=== PATIENT | male | born 1995 | race Caucasian/White ===

== ENCOUNTER 2018-09-20 20:02 | Emergency (ER) | payer SELFPAY ==
[2018-09-20 20:39] VITALS: BP 121/75
--- NOTE | 2018-09-20 21:17 | EDPHY ---
H & P Time Seen by Provider: 09/20/18 20:17 HPI/ROS: Chief complaint: Right shoulder injury status post snowboarding accident History of present illness: This is a 23-year-old male who presents to the emergency department for a recheck of a right shoulder injury that occurred from a snowboarding accident earlier today. Patient went off a jump, lost control and landed directly onto his right shoulder. Since then he has had pain in the front of his shoulder. It does hurt to move it. He also reports some right-sided chest wall discomfort. He denies trauma to the rest of the body including the head, along the spine itself, the abdomen or any other parts the extremities. No open wounds. No neurologic deficits such as headache, paresthesias, weakness or paralysis. Smoking Status: Current every day smoker Physical Exam: General Appearance: Alert, nontoxic Eyes: PERRLA. No Esquivel sign. ENT: No hemotympanum, no Esquivel sign. Respiratory: Lungs clear to auscultation bilaterally Cardiac: Regular rate and rhythm. Neurological: Alert and oriented x4. Strength and sensation intact and symmetrical. Skin: No lesions consistent with trauma. Musculoskeletal: The head is nontender, no crepitus or bony deformity. There is no tenderness to palpation along the entire spine, there is no crepitus, bony deformity or step-off. There is tenderness palpation of the anterior shoulder most pronounced at the right AC joint. Rest of the shoulder is nontender. He is able to move it. The rest of the right upper extremity other extremities are unremarkable. Chest wall is intact palpation without crepitus or subcutaneous air. Constitutional: Initial Vital Signs Temperature (C) 37.4 C 09/20/18 20:04 Heart Rate 91 09/20/18 20:04 Respiratory Rate 18 09/20/18 20:04 Blood Pressure 147/54 H 09/20/18 20:04 O2 Sat (%) 96 09/20/18 20:04 O2 Delivery Mode Room Air Allergies/Adverse Reactions: No Known Allergies Allergy (Unverified 09/20/18 20:06) Home Medications: Medication Instructions Recorded NK [No Known Home Meds] 09/20/18 MDM/Departure - MDM Imaging Results: Imaging Impressions Shoulder X-Ray 09/20/18 20:12 Impression: Negative for fracture. Chest X-Ray 09/20/18 20:38 Impression: Findings most consistent with bronchitis/airways disease are noted. Imaging: I viewed and interpreted images myself Procedures: Patient is placed in a right arm sling. He remains neurovascularly intact. ED Course/Re-evaluation: Patient seen under the supervision of my secondary supervising physician Dr. Geoff Dan. Patient presents to the emergency department for a shoulder pain after snowboarding accident. Rate of stream is neurovascularly intact. X-rays are negative. There is tenderness over the right AC joint, likely a type 1 AC joint separation. By history and physical exam no evidence of trauma to other parts of the body. Patient will be discharged home. Home care is discussed. He is asked to follow up with an orthopedic doctor for recheck. Return precautions are given. Patient voiced understanding and agreement with plan. Differential Diagnosis: Included but not limited to contusion, rotator cuff injury, AC separation, bony fracture, joint dislocation, pneumothorax - Depart Disposition: Home, Routine, Self-Care Clinical Impression: Right shoulder injury Qualifiers: Encounter type: initial encounter Qualified Code(s): S49.91XA - Unspecified injury of right shoulder and upper arm, initial encounter Condition: Good Instructions: Contusion in Adults (ED) Additional Instructions: Follow-up with orthopedics for continued evaluation and care Use ibuprofen 600 mg 3 times daily for the next 3 days Ice the injury, 20 min on, 3 times daily for the next 3 days If symptoms worsen or new symptoms develop return to the emergency room for recheck Stand Alone Forms: Work Excuse Referrals: NONE *PRIMARY CARE P,. [Primary Care Provider] - As per Instructions Jeremiah Cullen MD [Medical Doctor] - As per Instructions
== END 2018-09-20 21:27 | disposition home or self-care (01) ==
DX: S49.91XA Unspecified injury of right shoulder and upper arm, initial encounter (principal); V00.311A Fall from snowboard, initial encounter; Y93.23 Activity, snow (alpine) (downhill) skiing, snowboarding, sledding, tobogganing and snow tubing; Y92.828 Other wilderness area as the place of occurrence of the external cause; Y99.8 Other external cause status

== ENCOUNTER 2018-10-12 09:29 | Emergency (ER) | payer OTHER ==
--- NOTE | 2018-10-12 10:01 | EDPHY ---
General Time Seen by Provider: 10/12/18 09:48 Narrative: CLINICAL IMPRESSION: Scalp laceration ASSESSMENT/PLAN: Patient is a 23-year-old male with no significant medical history, takes no medications presents with complaints of a scalp laceration after slipping and falling on to a snow grooming rake. Patient is not toxic appearing, he is in no distress. Physical examination reveals 2 cm laceration on the posterior crown. There is no evidence of deep structure involvement, neurovascular compromise, foreign body, or bony involvement. The wound was not contaminated, tetanus status was already up-to-date. His neurological exam is grossly normal with no focal deficit, there was no loss of consciousness. He has no new focal neurologic deficit, there has been no altered mentation, there are no clinical findings to suggest skull fracture, there is no known bleeding disorder, there has been no vomiting and no posttraumatic seizure. Given the patients history and physical and negative per Th[place] head CT rule, we feel a head CT is not indicated at this time. The wound was irrigated and then repaired as discussed in the procedure note, the patient tolerated this well. Wound care instructions discussed with patient. The patient had no further concerns. He does not have a primary care provider, I provided a referral for him. He will also follow up with Orthopedic surgery regarding his shoulder dislocation 2 weeks prior as previously directed. He will return to the emergency department for staple removal in 7 days. Strict return precautions were discussed- he will return to the emergency department for altered mentation, lethargy, vomiting, seizure, abnormal movements, concern for infection or for any other concerning symptom. Patient verbalizes understanding and is in agreement with this plan. DIFFERENTIAL DIAGNOSIS: includes but not limited to laceration of tendon or vascular structure, underlying fracture, TBI, ICH, laceration with retained FB ED PROCEDURES: Laceration Repair Verbal consent obtained by patient. Risks discussed, including but not limited to infection, pain, retained foreign body, need for additional repair, poor cosmetic result, tendon damage, nerve damage, poor wound healing, vascular damage. Alternatives to repair discussed. Trade protocol used to establish correct patient, procedure, equipment, technical support engineer, and site. Anesthesia obtained by local infiltration. Anesthetized with 1% lidocaine with epinephrine. Laceration location posterior crown, length 2 cm, depth 4 mm, Repair type simple. Patient was prepped and draped in usual sterile fashion. Hemostasis achieved with direct pressure. Wound explored through full range of motion and entire depth of wound probed and visualized with gloved finger. No suspicion for nerve damage, tendon damage, underlying fracture, vascular damage, foreign body, or contamination. Area was cleansed with Shur-Clens and irrigated with sterile saline as per protocol. No foreign body or material removed. Repair method kelsey. Six sutures placed. Well aligned, closely approximated. wound was dressed with antibiotic ointment. Patient tolerated well with no immediate complications. Wound care: Clean and dry x 24 hours, gently clean with soap and water, cover with topical antibiotic ointment/bandage. Suture/Staple removal: 7 Days CHIEF COMPLAINT: Laceration HPI: Patient is a 23-year-old male with no significant medical history who presents to the emergency department with complaints of a scalp laceration that occurred approximately 1 hr prior to arrival. Patient works up at [employer], he accidentally slipped in the snow falling onto the ground hitting a grooming rake when he fell. Patient reports hitting the back of his head. He denies any loss of consciousness. He denies any headache, dizziness or visual changes. He is not on any anti-platelet or anticoagulation therapy. He has had no altered mentation, retrograde amnesia, vomiting or posttraumatic seizure. He denies any neck or back pain. He denies any other injury from this fall. Patient with remote right shoulder dislocation, complains of mild right shoulder pain however significantly improved from 2 weeks prior. Has not followed up with Orthopedic surgery yet. PAST MEDICAL HISTORY: Denies Pertinent Past Surgical History: Denies Social History: Current everyday smoker, occasional drinker, denies any illicit drug use. REVIEW OF SYSTEMS: All other systems negative Constitutional: No fever, no chills Musculoskeletal: No deformity. Skin: Scalp laceration Neurological: No sensory loss or weakness. PHYSICAL EXAM: General Appearance: Alert, oriented, appropriate for age, cooperative, NAD, well hydrated, non-toxic appearing, VSS, no hypoxia. HENT: Normocephalic. 2 cm laceration noted to posterior crown. No associated edema, no bony deformity or crepitus. External ears are normal, tympanic membranes with pearly peralta reflex, no evidence of hemotympanum bilaterally. No Esquivel sign or raccoon eyes. No evidence of facial trauma, no nasal bridge tenderness. Nasal mucosa is pink. Oropharynx is clear, there is no evidence of dental trauma. No malocclusion. No mandibular tenderness to palpation. Neck: Supple, no midline cervical spinal tenderness to palpation, no step-off or deformity. Full range of motion. Neurological: Alert and oriented x 3 Skin: Warm and dry. Upper Extremities: Left upper extremity is unremarkable. Intact distal pulses , Full range of motion intact, no tenderness, no ecchymosis or edema. Patient with tenderness of his generalized right shoulder, patient had shoulder dislocation 2 weeks prior. Full range of motion, no deformity or asymmetry. Distal arm nontender with full range of motion. The radial, ulnar and median nerves were all tested. Radial nerve: Patient is able to extend wrist and fingers of the local joints. Ulnar nerve: Patient is able to abduct all fingers. Median nerve patient is able to oppose thumb to pinky. Lower Extremities: Intact distal pulses, No edema, No tenderness, No cyanosis, full range of motion intact, No calf tenderness bilaterally. MEDICAL DECISION MAKING: Patient was seen independently. Secondary supervising physician at time of evaluation was Dr. Dan, he did not evaluate this patient however I discussed this case with him. Diagnosis: Scalp laceration. Summary: See assessment and plan for summary of ED visit Clinical lab tests: Not applicable. Independent visualization of images, tracing, or specimens not applicable. Decision to obtain medical records or history from someone other than the patient: No Review / Summarize previous medical records: Yes Discussed patient with another provider: Yes, Dr. Dan Dispo: Stable, discharge. - History Smoking Status: Current every day smoker - Objective Vital Signs: Initial Vital Signs Temperature (C) 36.6 C 10/12/18 09:31 Heart Rate 109 H 10/12/18 09:31 Respiratory Rate 16 10/12/18 09:31 Blood Pressure 120/68 10/12/18 09:31 O2 Sat (%) 93 10/12/18 09:31 O2 Delivery Mode Room Air Allergies/Adverse Reactions: Morpholine Analogues Allergy (Verified 10/12/18 09:35) Home Medications: Medication Instructions Recorded NK [No Known Home Meds] 09/20/18 Departure - Departure Disposition: Home, Routine, Self-Care Clinical Impression: Scalp laceration Qualifiers: Encounter type: initial encounter Qualified Code(s): S01.01XA - Laceration without foreign body of scalp, initial encounter Condition: Good Instructions: Laceration (ED) Additional Instructions: DISCHARGE INSTRUCTIONS FROM YOUR DOCTOR Thank you for visiting our emergency department today. Please keep in mind that discharge from the emergency department does not mean that there is nothing wrong - it simply means that we have not identified an emergency condition that requires further evaluation or treatment in the hospital. You should always plan to follow up with primary care for re-evaluation of your condition in the next 2-3 days. Keep wound clean and dry for 24 hours. Clean at least twice daily or when soiled with soap and water, apply antibiotic ointment and dressing. Do not soak the wound while the kelsey are in place. Anticipate staple removal and 7 days. For pain control: You may take Tylenol, I recommend 500-1000 mg every 6-8 hours as needed. Take with food and a full glass of water. Stop taking if this is upsetting her stomach. Do not exceed 4000 mg in a 24 hr period. You may also take ibuprofen, recommend 400 mg every 6 hr. Take with food and a full glass of water. Stop taking if this upsets her stomach. Do not exceed 2400 mg in a 24 hr period. Return for signs of wound infection ie: redness, swelling, drainage, foul odor, red streaks, fever, chills, pain, bleeding, if the stitches pop, if the wound opens or for any other new, worsening or worrisome symptoms. Please follow-up with Orthopedic surgery regarding her right shoulder injury as previously directed. People present with illnesses and injuries in different ways, and it is always possible that we have missed something. You may always return for re-evaluation if symptoms worsen or if they are not improving or if you develop new/different symptoms. Again, thank you for choosing our emergency department. We hope that you feel better. Referrals: John Paul Quinones MD [Medical Doctor] - As per Instructions (This is a referral for a primary care doctor, please establish care if you do not have 1. ) ED,PHYSICIAN BING [Medical Doctor] - As per Instructions (Seven days for staple removal.)
[2018-10-12 10:50] VITALS: BP 117/58
== END 2018-10-12 10:50 | disposition home or self-care (01) ==
PROC: 0HQ0XZZ Repair Scalp Skin, External Approach (ICD-10-PCS; principal; 2018-10-12)
DX: S01.01XA Laceration without foreign body of scalp, initial encounter (principal); V00.311A Fall from snowboard, initial encounter; Y93.23 Activity, snow (alpine) (downhill) skiing, snowboarding, sledding, tobogganing and snow tubing; Y92.828 Other wilderness area as the place of occurrence of the external cause